=== PATIENT | female | born 1995 | race Two or more races ===

== ENCOUNTER 2025-02-05 05:52 | Emergency (ER) | payer OTHER ==
[~2025-02-05] VITALS: Ht 162.6 cm; Wt 104.0 kg
[2025-02-05 07:21] VITALS: BP 129/79; PULSE 91; RESP 18; TEMP 98; O2SAT 100
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
[2025-02-05] MEDS: HYDROcodone-ACET 10/325MG TAB PO ONE (08:02)
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
[2025-02-05] MEDS ORDERED: IBU600T PO (10:34)
== END 2025-02-05 10:36 | disposition home or self-care (01) ==
LOC: EDBD 05:52 → ER 05:52
DX: S83.91XA Sprain of unspecified site of right knee, initial encounter (principal); M25.512 Pain in left shoulder; M79.631 Pain in right forearm; M79.18 Myalgia, other site; V89.2XXA Person injured in unspecified motor-vehicle accident, traffic, initial encounter; Y99.8 Other external cause status; Y93.84 Activity, sleeping; Y92.410 Unspecified street and highway as the place of occurrence of the external cause
CPT/HCPCS: 71101; 73562; 73620